=== PATIENT | female | born 1995 ===

== ENCOUNTER → 2023-06-18 11:49 | Outpatient (CLI) | payer OTHER ==
[2023-06-18 12:21] LABS: HEMATOCRIT 38.8 % (36.0-45.00); HEMOGLOBIN 13.3 g/dL (12.0-15.00); MEAN CELL VOLUME 92.2 fL (80.00-100.00); MEAN CORPUSCULAR HEMOGLOBIN 31.6 pg (27.00-32.0); MEAN CORPUSCULAR HGB CONC 34.2 g/dl (32.0-36.0); PLATELET COUNT 223 K/uL (150-450); RED BLOOD COUNT 4.21 M/uL (4.00-6.00); RED CELL DISTRIBUTION WIDTH 13.1 % (11.5-14.5)
[2023-06-18 12:31] LABS: URINE APPEARANCE Clear; URINE BILIRRUBIN Negative (NEGATIVE); URINE BLOOD Negative; URINE COLOR Yellow; URINE GLUCOSE Negative (NEGATIVE); URINE LEUKOCYTE Negative; URINE NITRATE Negative; URINE PROTEIN Negative (NEGATIVE); URINE UROBILINOGEN 0.2 E.U./dl
[2023-06-18 12:32] LABS: URINE BACTERIA 35.2 uL (0.0-1933); URINE EPITHELIAL CELLS 2.3 uL (0.0-38.8)
[2023-06-18 12:42] LABS: URINE RBC 1.4 uL (0.0-20.8); URINE WBC 0.7 uL (0.0-23.2)
[2023-06-18 12:56] LABS: ALBUMIN 4.3 gm/dL (3.4-5.0); BILIRUBIN TOTAL 0.87 mg/dL (0.3-1.2); CALCIUM 9.2 mg/dL (8.5-10.1); CHOL HDL RATIO 2.1 (0-5.0); CREATININE SERUM 0.7 mg/dL (0.55-1.02); FREE TRIODOTIRONINE 2.2 pg/ml (2.18-3.98); GFR 98.93; GLOBULINA 3.3 G/DL (2.4-3.5); POTASSIUM 4.06 mEq/L (3.5-5.1); TOTAL PROTEIN 7.6 gm/dL (6.4-8.2); TSH 0.98 uIU/mL (0.358-3.74)
[2023-06-18 19:58] LABS: VITAMIN D3 25 HYDROXY 35.52 ng/ml (30-120)
== END | disposition home or self-care (01) ==
LOC: LAB 11:49
PROVIDERS: ATTEND Obstetrics & Gynecology
DX: N95.1 Menopausal and female climacteric states (principal); E28.39 Other primary ovarian failure; E04.1 Nontoxic single thyroid nodule; E55.9 Vitamin D deficiency, unspecified; E78.00 Pure hypercholesterolemia, unspecified; N39.0 Urinary tract infection, site not specified; R19.5 Other fecal abnormalities; R97.8 Other abnormal tumor markers; E11.9 Type 2 diabetes mellitus without complications; K76.9 Liver disease, unspecified